=== PATIENT | male | born 1960 ===

== ENCOUNTER 2020-05-28 17:06 | Inpatient (IN) | payer BC ==
[~2020-05-28] VITALS: Ht 188 cm; Wt 70.9 kg
[2020-05-28 18:03] LABS: BASOPHILS 0.6 % (0-2); EOSINOPHILS 0.6 % (0-7); HEMATOCRIT 32.3 % (42.0-54.0); HEMOGLOBIN 9.1 g/dL (13.5-17.5); IMMATURE GRANULOCYTES 0.2 % (0-5); LYMPHOCYTES 22.6 % (15-50); MCHC 28.2 g/dL (31.0-37.0); MCV 66.6 fL (80.0-100.0); MEAN PLATELET VOLUME 8.7 fL (7.4-10.4); MONOCYTES 9.6 % (2-11); NEUTROPHILS 66.4 % (40-80); PLATELET COUNT 421 10x3/uL (130-400); RBC 4.85 10x6/uL (4.20-6.10); WBC 9.3 10x3/uL (4.8-10.8)
[2020-05-28 18:04] LABS: MCH 18.8 pg (26.0-34.0)
[2020-05-28 18:16] LABS: APTT 25.3 SECONDS (22.8-39.4); CALC OSMOLALITY 276 mosm/kg (275-300); CARBON DIOXIDE 27.4 mmol/L (21.0-32.0); CHLORIDE - SERUM 100 mmol/L (98-107); GLUCOSE 95 mg/dL (74-106); INR 1.1 (0.85-1.17); PROTIME 14.1 SECONDS (11.6-15.0); SODIUM 137 mmol/L (136-145); UREA NITROGEN 21 mg/dL (7-18); eGFR NON AFRICAN AMERICAN 81 mL/min (90-120)
--- NOTE | 2020-05-28 18:17 | NUR ---
COVID 19 SWAB OBTAINED IN [facility].
[2020-05-28 18:28] LABS: ALBUMIN 3.8 g/dL (3.4-5.0); ALKALINE PHOSPHATASE 87 U/L (30-120); ALT (SGPT) 16 U/L (10-68); AMYLASE - SERUM 80 U/L (25-115); BILIRUBIN - TOTAL 1.02 mg/dL (0.2-1.3); LIPASE 197 U/L (73-393); PROTEIN - SERUM 7.1 g/dL (6.4-8.2)
[2020-05-28 18:29] LABS: TROPONIN-I < 0.017 ng/mL (0.000-0.060)
--- NOTE | 2020-05-28 19:06 | NUR ---
BEDSIDE REPORT TO OVIDIO SOSA AND VINCENT SOSA.
[2020-05-28 19:17] VITALS: BP 125/83
--- NOTE | 2020-05-28 20:43 | NUR ---
PT DENIES NEEDS, RESTING IN SUPINE POSITION. EVEN RISE AND FALL OF CHEST NOTED. WILL CONTINUE TO MONITOR.
[2020-05-28 20:45] VITALS: BP 141/93
[2020-05-28 21:30] VITALS: BP 124/83
--- NOTE | 2020-05-28 21:40 | NUR ---
ICE WATER PROVIDED TO PT. PT DENIES CURRENT NEEDS. VSS, RESPIRATIONS APPEAR EVEN AND NON LABORED. NOTED FORCEFUL COUGHING THAT IS INTERMITTENT. PT DENIES FOOD TRAY, STATES THAT "I CANNOT TASTE ANYWAY." OFFERED JELLO TO PT, BUT HE ALSO DECLINED.
[2020-05-28 22:30] VITALS: BP 122/79
--- NOTE | 2020-05-28 23:30 | NUR ---
PT FROM ER VIA W/C, PT AMBULATED TO BED, NO DISTRESS NOTED, RESP EVEN AND UNLABORED. CL IN REACH, SR UP X 2.
[2020-05-29] VITALS: BP 157/93
[2020-05-29 04:00] VITALS: BP 119/67
[2020-05-29 04:26] LABS: BASOPHILS 0.1 % (0-2); EOSINOPHILS 0 % (0-7); HEMATOCRIT 31.2 % (42.0-54.0); HEMOGLOBIN 8.8 g/dL (13.5-17.5); IMMATURE GRANULOCYTES 0.1 % (0-5); LYMPHOCYTES 9.9 % (15-50); MCHC 28.2 g/dL (31.0-37.0); MCV 66.4 fL (80.0-100.0); MEAN PLATELET VOLUME 8.9 fL (7.4-10.4); MONOCYTES 2.7 % (2-11); NEUTROPHILS 87.2 % (40-80); PLATELET COUNT 415 10x3/uL (130-400); RDW 18.9 % (11.5-14.5); WBC 8.5 10x3/uL (4.8-10.8)
[2020-05-29 04:31] LABS: MCH 18.7 pg (26.0-34.0)
[2020-05-29 04:34] LABS: CALC OSMOLALITY 273 mosm/kg (275-300); CARBON DIOXIDE 25.6 mmol/L (21.0-32.0); CHLORIDE - SERUM 101 mmol/L (98-107); GLUCOSE 140 mg/dL (74-106); POTASSIUM - SERUM 4.1 mmol/L (3.5-5.1); SODIUM 135 mmol/L (136-145); UREA NITROGEN 18 mg/dL (7-18); eGFR NON AFRICAN AMERICAN 81 mL/min (90-120)
--- NOTE | 2020-05-29 07:30 | NUR ---
PT RECEIVED AWAKE AND ALERT IN BED. PULSE OX 99% ON ROOM AIR. DR CHOE IN ROOM AT PRESENT.
[2020-05-29 07:50] VITALS: BP 121/96
[2020-05-29 08:15] VITALS: Ht 188 cm; Wt 70.9 kg
--- NOTE | 2020-05-29 13:13 | NUR ---
PT CALLED ME TO ROOM TO LET ME KNOW THAT HIS CALLED AND STATES COVID TEST FROM PRIOR TO ADMISSION WAS NEG. STILL PENDING RESULTS FROM THIS ADMISSION.
--- NOTE | 2020-05-29 19:20 | NUR ---
PT IN BED, AAO X 3, RESP EVEN AND UNLABORED. NO DISTRESS NOTED, CL IN REACH, SR UP X 2.
[2020-05-29 20:00] VITALS: BP 128/68
[2020-05-30] VITALS: BP 128/74
[2020-05-30 04:00] VITALS: BP 117/64
[2020-05-30 07:54] LABS: BASOPHILS 0 % (0-2); EOSINOPHILS 0.1 % (0-7); HEMATOCRIT 28.9 % (42.0-54.0); HEMOGLOBIN 8.3 g/dL (13.5-17.5); IMMATURE GRANULOCYTES 0.2 % (0-5); LYMPHOCYTES 20.8 % (15-50); MCH 18.9 pg (26.0-34.0); MCHC 28.7 g/dL (31.0-37.0); MCV 65.7 fL (80.0-100.0); MEAN PLATELET VOLUME 8.5 fL (7.4-10.4); MONOCYTES 9.4 % (2-11); NEUTROPHILS 69.5 % (40-80); PLATELET COUNT 372 10x3/uL (130-400); RDW 18.8 % (11.5-14.5); WBC 14.6 10x3/uL (4.8-10.8)
[2020-05-30 08:12] LABS: TOTAL IRON BIND CAPACITY 406 ug/dl (260-445)
[2020-05-30 08:21] VITALS: BP 101/53; BP 129/77
[2020-05-30 08:28] LABS: ALBUMIN 3.3 g/dL (3.4-5.0); ALKALINE PHOSPHATASE 71 U/L (30-120); ALT (SGPT) 18 U/L (10-68); BILIRUBIN - TOTAL 0.87 mg/dL (0.2-1.3); CALC OSMOLALITY 274 mosm/kg (275-300); CALCIUM 8.6 mg/dL (8.5-10.1); CARBON DIOXIDE 25.2 mmol/L (21.0-32.0); CHLORIDE - SERUM 103 mmol/L (98-107); CREATININE - SERUM 0.9 mg/dL (0.6-1.3); GLUCOSE 104 mg/dL (74-106); POTASSIUM - SERUM 3.9 mmol/L (3.5-5.1); SODIUM 137 mmol/L (136-145); UREA NITROGEN 15 mg/dL (7-18); eGFR NON AFRICAN AMERICAN > 90 mL/min (90-120)
[2020-05-30 08:43] LABS: % SATURATION 2 % (15-55); IRON 11 ug/dl (35-150); UNSAT IRON BIND CAPACITY 395 ug/dl (150-375)
[2020-05-30 11:41] VITALS: BP 109/64
[2020-05-30 16:33] VITALS: BP 139/51
--- NOTE | 2020-05-30 19:10 | NUR ---
REPORT RECEIVED, PT CARE ASSUMED. INTRODUCED SELF AND WROTE NAME ON BOARD. PT SITTING UP IN BED, WATCHING TV, AAOX4. DENIES ANY NEEDS AT THIS TIME. FAMILY AT BEDSIDE. BED IN LOWEST, SRX1, CALL LIGHT WITHIN REACH. WILL CTM.
[2020-05-30 20:54] VITALS: BP 126/57
[2020-05-31 04:46] VITALS: BP 102/51
--- NOTE | 2020-05-31 07:30 | NUR ---
PT SITTING UP IN BED. FAMILY AT BEDSIDE. PT C/O IV HURTING. SITE IS SWOLLEN AND STATES BURNING. IV D/C WITH CATHETER TIP INTACT. WILL RESITE. CALL LIGHT WITHIN REACH. DENIES FURTHER NEEDS OR PAIN AT THIS TIME. WILL CONTINUE TO MONITOR.
[2020-05-31] MEDS ORDERED: IPRAT-ALBUT 0.5-3 ML UPD (09:10)
[2020-05-31] MEDS ORDERED: PREDNISONE20 MG PO (09:13)
[2020-05-31] MEDS ORDERED: SYMBICORT 16010.2 GM INH (09:13)
[2020-05-31] MEDS ORDERED: DOXYCYCLINE HY100 M2 PO (09:14)
--- NOTE | 2020-05-31 09:22 | NUR ---
IV PLACED TO LEFT FOREARM X2 ATTEMPTS 20G.
[2020-05-31] MEDS ORDERED: FERROUS SULFAT325 MG PO (09:28)
[2020-05-31 09:41] VITALS: BP 108/61
--- NOTE | 2020-05-31 14:04 | NUR ---
D/C INSTRUCTIONS REVIEWED WITH PT AND FAMILY MEMBER. IV D/C WITH CATHETER TIP INTACT. LEFT VIA WHEELCHAIR TO PERSONAL VEHICLE WITH ALL BELONGINGS.
--- NOTE | 2020-06-01 16:53 | MORECARE ---
CASE MANAGEMENT DISCHARGE SUMMARY PATIENT: JAZMÍN LAND VIVIAN UNIT: [id number] ADM DATE: 05/28/20 AGE: 60 : 64 SEX: M ROOM/BED: D.2139 AUTHOR: PRASHANT,DOC PHYSICIAN: REFERRING PHYSICIAN: CHARLIE CHOE MD DATE OF SERVICE: 06/01/20 Discharge Plan Patient Name: JAZMÍN LAND Facility: [facility]:[place] : 1960 Planned Disposition: Home Anticipated Discharge Date: Discharge Date: 05/31/2020 Expected LOS: Initial Reviewer: [email or web address] Initial Review Date: 05/28/2020 Generated: 06/01/20 5:52 pm DCPIA - Discharge Planning Initial Assessment Updated by [email or web address]: Elenita Mitchell on 06/01/20 4:50 pm * Is the patient Alert and Oriented? Yes * How many steps to enter\exit or inside your home? * PCP [facility] [place] * Pharmacy [facility] * Preadmission Environment Home with Family * ADLs Independent * Equipment None * List name and contact numbers for known caregivers / representatives who currently or will assist patient after discharge: SILVIA LAND -SPOUSE - [phone] * Verbal permission to speak to the caregivers and representatives has been obtained from the patient. Yes * Community resources currently utilized None * Additional services required to return to the preadmission environment? No * Can the patient safely return to the preadmission environment? Yes * Has this patient been hospitalized within the prior 30 days at any hospital? 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
--- NOTE | 2020-06-01 16:59 | MORECARE ---
CASE MANAGEMENT DISCHARGE SUMMARY PATIENT: JAZMÍN LAND VIVIAN UNIT: [id number] ADM DATE: 05/28/20 AGE: 60 : 64 SEX: M ROOM/BED: D.7569 AUTHOR: PRASHANT,DOC PHYSICIAN: REFERRING PHYSICIAN: CHARLIE CHOE MD DATE OF SERVICE: 06/01/20 Discharge Plan Patient Name: JAZMÍN LAND Facility: [facility]:[place] : 1960 Planned Disposition: Home Anticipated Discharge Date: Discharge Date: 05/31/2020 Expected LOS: Initial Reviewer: [email or web address] Initial Review Date: 05/28/2020 Generated: 06/01/20 5:59 pm Comments DCP- Discharge Planning Updated by [email or web address]: Elenita Mitchell on 06/01/20 3:[address] LATE ENTRY 05/31/20 Patient Name: JAZMÍN LAND Admission Status: ER Accout number: [id number] Admission Date: 05-28-2020 : 1960 Admission Diagnosis:CHRONIC OBSTRUCTIVE PULMONARY DISEASE W (ACUTE) EXACERB Attending: CHARLIE CHOE Current LOS: 3 Anticipated DC Date: Planned Disposition: Home Primary Insurance: [employer] TRUE BLUE PPO Discharge Planning Comments: CM met with patient to complete initial dc planning assessment. CM educated patient on the CM role and verbal consent given by patient to complete assessment. Patient lives at home with family. Patient is independent. At discharge patient plans to return home and feels this is a safe discharge. CM discussed availability of home health, rehab services, and medical equipment. [facility] signed for DME. Benjamin will bring Nebulizer to patient's room prior to discharge. Patient will have family to transport home. Patient denied known discharge needs at this time. CM will continue to follow and will assist as needed with dc plans/needs. Hoisting Engineer Pile Driving: Elenita Mitchell DCPIA - Discharge Planning Initial Assessment Updated by [email or web address]: Elenita Mitchell on 06/01/20 4:50 pm * Is the patient Alert and Oriented? Yes * How many steps to enter\exit or inside your home? * PCP [facility] * Pharmacy [facility] * Preadmission Environment Home with Family * ADLs Independent * Equipment None * List name and contact numbers for known caregivers / representatives who currently or will assist patient after discharge: SILVIA LAND -SPOUSE - [phone] * Verbal permission to speak to the caregivers and representatives has been obtained from the patient. Yes * Community resources currently utilized None * Additional services required to return to the preadmission environment? No * Can the patient safely return to the preadmission environment? Yes * Has this patient been hospitalized within the prior 30 days at any hospital? 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 Name: Delivery Method: HAND - Hand Delivered Angi Days: Prior Verbal Notification: Recipient Understood Notice: Yes Recipient Signature: Yes Med Rec Note Co-signed by Attending: Coverage Notice Comment: [facility] Last DP export: 06/01/20 3:53 p Patient Name: JAZMÍN LAND Page [id number] at 1659 All edits/amendments must be made on the electronic document DICTATION DATE: 06/01/201658 APPETIZER PACKER: TALON 06/01/201658 RPT#: [id number] DC DATE:05/31/20 STATUS: DIS IN [facility] [address] [place] [address] END OF REPORT
== END 2020-05-31 14:04 | disposition home or self-care (01) | DRG 192 ==
LOC: D.ER 17:06 → D.M2 20:15
PROVIDERS: Family Medicine; ADMIT Family Medicine; ATTEND Family Medicine
DX: J43.9 Emphysema, unspecified (principal); J20.9 Acute bronchitis, unspecified; R55 Syncope and collapse; D50.9 Iron deficiency anemia, unspecified